=== PATIENT | male | born 1990 | race Caucasian/White ===

== ENCOUNTER 2017-05-04 11:31 | Emergency (ER) | payer BC ==
[~2017-05-04] VITALS: Ht 180.3 cm; Wt 120.2 kg
[~2017-05-04 11:31] MED LIST: FLEXERIL10 MG PO; FLEXERIL5 MG PO; NAPROSYN500 MG PO; NAPROXEN500 MG PO; NOHOMEMEDS; TRAMADOL HCL50 MG PO; ULTRAM50 MG PO
[2017-05-04 13:11] LABS: MCH 29.4 PG (29.0-34.0); MCV 86.5 FL (86-99); MEAN PLAT.VOLUME 10.5 uM^3 (9.0-12.4); PLATELET COUNT 225 K/uL (156-360); RBC DIS.WIDTH-CV 12.7 % (11.8-14.6); RBC DIS.WIDTH-SD 40.1 % (39-53); WHITE BLOOD COUNT 7.2 K/uL (4.1-10.2)
[2017-05-04 13:24] LABS: CHLORIDE 107 mEq/L (99-109); POTASSIUM 3.8 mEq/L (3.7-5.4); SODIUM 138 mEq/L (136-147)
[2017-05-04 13:26] LABS: GLUCOSE 90 mg/dL (70-99)
[2017-05-04 13:27] LABS: ANION GAP 7 MEQ/L (2-14)
[2017-05-04 13:28] LABS: TOTAL BILIRUBIN 0.6 mg/dL (0.0-1.0)
[2017-05-04 13:30] LABS: ALKALINE PHOSPHATASE 83 IU/L (3-129); GFR ESTIMATE (CALCULATED) > 59 mL/min/
[2017-05-04 13:31] LABS: UREA NITROGEN (BUN) 9 mg/dL (9-23)
[2017-05-04 14:01] LABS: ADD MIUA? YES; BILIRUBIN NEGATIVE; BLOOD NEGATIVE; COLOR YELLOW ((YELLOW)); GLUCOSE (STRIP) NEGATIVE; KETONES NEGATIVE; LEUKOCYTES NEGATIVE; NITRITE NEGATIVE; PROTEIN (STRIP) NEGATIVE; SPECIFIC GRAVITY 1.017 (1.000-1.030); UROBILINOGEN 0.2 MG/DL (0.2-1.0)
[2017-05-04 14:09] LABS: BACTERIA RARE /HPF; EPITHELIAL CELLS RARE /HPF; MUCUS TRACE /LPF; RED BLOOD CELLS 0-5 /HPF (0-5); UCUL ADDED? NO; WHITE BLOOD CELLS 0-5 /HPF (0-5)
[2017-05-04 14:19] LABS: LIPASE 11 U/L (1.0-51.0)
[2017-05-04] MEDS ORDERED: CIPRO500 MG PO (16:09)
[2017-05-04] MEDS ORDERED: FLAGYL500 MG PO (16:09)
[2017-05-04 16:22] VITALS: BP 132/70
== END 2017-05-04 16:24 | disposition home or self-care (01) ==
LOC: EME 11:31
DX: K52.9 Noninfective gastroenteritis and colitis, unspecified (principal); R19.7 Diarrhea, unspecified; R10.30 Lower abdominal pain, unspecified
CPT/HCPCS: 74177; 80053; 81003; 83690; 85027; 87177; 87493; 99281; 99284; J1885; J7030